=== PATIENT | female | born 1985 | race Caucasian/White ===

== ENCOUNTER 2019-05-17 10:57 | Emergency (ER) | payer OTHER ==
[~2019-05-17] VITALS: Ht 154.9 cm; Wt 99.8 kg
--- OUTSIDE RECORDS SUMMARY | 2019-05-17 11:00 | XMS REPORT | Continuity of Care Document ---
Author Author [place] Address Unknown Phone Unavailable Care Team Providers Care Rope Tier Name Role Phone VILOOP Unavailable Unavailable Problems Problem Status Onset Date Classification Date Reported Comments Source Immunization due 12/11/2018 Diagnosis 12/11/2018 [facility] Elevated blood-pressure reading without diagnosis of hypertension 12/11/2018 Diagnosis 12/11/2018 [facility] Body mass index 40+ - severely obese 12/11/2018 Diagnosis 12/11/2018 [facility] Influenza due to Influenza A virus 12/10/2018 Diagnosis 12/11/2018 [facility] Acute bronchitis 12/10/2018 Diagnosis 12/11/2018 [facility] Acute sinusitis 12/10/2018 Diagnosis 12/11/2018 [facility] Medications Medication Details Route Status Patient Instructions Ordering Provider Order Date Source Amoxicillin 875 MG / Clavulanate 125 MG Oral Tablet [Augmentin] Augmentin 875 mg-125 mg tablet Take 1 tablet every 12 hours by oral route for 7 days. Active [facility] benzonatate 200 MG Oral Capsule benzonatate 200 mg capsule Take 1 capsule 3 times a day by oral route for 5 days. take only prn cough Active [facility] Fluticasone propionate 0.05 MG/ACTUAT Metered Dose Nasal [place] fluticasone propionate 50 mcg/actuation nasal spray,suspension [place] 2 sprays every day by intranasal route for 30 days. Active [facility] 200 ACTUAT Albuterol 0.09 MG/ACTUAT Metered Dose Inhaler [ProAir] ProAir HFA 90 mcg/actuation aerosol inhaler Inh[place] 2 puffs every 4 hours by inhalation route for 14 days. take as needed for cough, wheezing and shortness of breath/chest tightness Active [facility] Allergies, Adverse Reactions, Alerts No Known Medication Allergies Immunizations No Data Provided for This Section Results Order Name Results Value Reference Range Date Interpretation Comments Source PEF 300 12/10/2018 [facility] Percent Predicted Value 63 12/10/2018 [facility] Influenza A positive 12/10/2018 [facility] Influenza B negative 12/10/2018 [facility] Pathology Reports No Data Provided for This Section Diagnostic Reports No Data Provided for This Section Consultation Notes No Data Provided for This Section Discharge Summaries No Data Provided for This Section History and Physicals No Data Provided for This Section Vital Signs Vital Sign Value Date Comments Source Diastolic (mm Hg) 76 12/10/2018 [facility] Height 61 12/10/2018 [facility] Systolic (mm Hg) 122 12/10/2018 [facility] Weight 245 12/10/2018 [facility] Encounters Location Location Details Encounter Type Encounter Number Reason For Visit Attending Provider ADM Date DC Date Status Source [place] - [facility] Lynda Burton, MARKER ASSEMBLER-C: [address] [place] [address], Ph. [id number] Lynda Burton 12/10/2018 [facility] Procedures No Data Provided for This Section Assessment and Plan No Data Provided for This Section Plan of Care No Data Provided for This Section Social History Social History Date Source Smoking Status Never Smoker 12/10/2018 [facility] Family History No Data Provided for This Section Advance Directives No Data Provided for This Section Functional Status No Data Provided for This Section
--- OUTSIDE RECORDS SUMMARY | 2019-05-17 11:01 | XMS REPORT | Encounter Summary ---
Author Organization Unknown Address [address] [place] [address] Phone [phone] Reason for Visit Medical Complaint Instructions 1. Acute bronchitis rapid flu (A+B) peak flow benzonatate 200 mg capsule ProAir HFA 90 mcg/actuation aerosol inhaler bronchitis: care instructions 2. Acute sinusitis fluticasone propionate 50 mcg/actuation nasal spray,suspension Augmentin 875 mg-125 mg tablet sinusitis: care instructions 3. Influenza due to Influenza A virus influenza (flu): care instructions 4. Body mass index 40+ - severely obese learning about healthy weight 5. Elevated blood-pressure reading without diagnosis of hypertension elevated blood pressure: care instructions 6. Immunization due Discussion Note Pt is aaox3 and in NAD; verbalizes understanding of all instructions and has no further questions at this time Plan of Care Patient Instructions Please take medications as instructed. Advise rest, fluids, good hand hygiene. ER precautions advised for high fever, shortness of breath, difficulty breathing, chest pain, or any new/worsening symptoms. Reminders Provider Appointments None recorded. Lab Rapid Flu (A+B) 12/10/2018 [facility] Referral None recorded. Procedures None recorded. Surgeries None recorded. Imaging None recorded. Medications Name Start Date Augmentin 875 mg-125 mg tablet Take 1 tablet every 12 hours by oral route for 7 days. benzonatate 200 mg capsule Take 1 capsule 3 times a day by oral route for 5 days. take only prn cough fluticasone propionate 50 mcg/actuation nasal spray,suspension [place] 2 sprays every day by intranasal route for 30 days. ProAir HFA 90 mcg/actuation aerosol inhaler Inhale 2 puffs every 4 hours by inhalation route for 14 days. take as needed for cough, wheezing and shortness of breath/chest tightness Medications Administered None recorded. Vitals Height Weight BMI Blood Pressure 5 ft 1 in 245 lbs 46.3 kg/m2 122/76 mm[Hg] Lab Results Date Name Specimen Result Interpretation Description Value Range Status Address Peak Flow Pef [facility] Percent Predicted Value 63% [facility]: [facility] Rapid Flu (A+B) Influenza a positive [facility]: [facility] Influenza B negative [facility]: [facility] Allergies Code Code System Name Reaction Severity Status Onset NKDA Problems No Known Problems Procedures None recorded. Vaccine List None recorded. Social History Smoking Status Never Smoker Past Encounters 12/10/2018 Acute Bronchitis; Acute Sinusitis; Influenza Due to Influenza a Virus; Body Mass Index 40+ - Severely Obese; Elevated Blood-pressure Reading without Diagnosis of Hypertension; Immunization Due Lynda Burton, [employer]ARK INTERPRETIVE [employer]IST-C: [address] [place] [address], Ph. History of Present Illness [id number] Reported By: Patient HPI: Location: head/sinuses, chest. Quality: productive cough, nasal/sinus congestion. Duration: 10days. Severity: moderate. Onset/Timing: gradual. Context: no sick contacts, no foreign travel, non-smoker, allergies. Modifying factors: OTC medication. Associated Symptoms: no sputum production, no wheezing, no change in number of pillows needed to sleep at night, no sweats, no significant weight gain, no significant weight loss, no morning cough, no sore throat, no vomiting, no diarrhea, no rash, no nausea, no fever, shortness of breath, fatigue, fever, muscle aches, headache Review of Systems:ROS as noted in the HPI Review of Systems Basic Reported By: Patient Physical Exam Adult Basic, Adult Female Complete Reported By: Patient Constitutional: General Appearance: healthy-appearing, morbidly obese. Level of Distress: NAD. Ambulation: ambulating normally Psychiatric: Mental Status: active and alert. Orientation: to time, to place, to person Eyes: Lids and Conjunctivae: non-injected, no discharge, no pallor Xrp-[id number]-Qqtop-Throat: Ears: no lesions on external ear, no outer ear tenderness, EACs clear, TMs clear. Hearing: no hearing loss. Nose: no lesions on external nose, no septal deviation, nasal obstruction, sinus tenderness, post nasal drip. Lips, Teeth, and Gums: no mouth or lip ulcers, no bleeding gums, normal dentition. Oropharynx: moist mucous membranes, no exudates, tonsils not enlarged, erythema Neck: Neck: supple, trachea midline, FROM. Lymph Nodes: no cervical LAD Lungs: Respiratory effort: no dyspnea, no tachypnea, no use of accessory muscles, no intercostal retractions. Auscultation: breath sounds normal Cardiovascular: Heart Auscultation: RRR, no murmurs
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
[2019-05-17 12:36] LABS: BASOPHILS % 0.4 % (0.0-1.0); EOSINOPHILS # (AUTO) 0.1 (0.0-0.4); EOSINOPHILS % 1.5 % (0.0-6.0); HEMATOCRIT 45.1 % (34.2-44.1); HEMOGLOBIN 14.8 g/dL (12.0-16.0); LYMPHOCYTES # (AUTO) 2.1 (1.0-3.2); LYMPHOCYTES % 26.3 % (18.0-39.1); MEAN CORPUSCULAR HEMOGLOBIN 28.1 pg (28-32); MEAN CORPUSCULAR HGB CONC 32.8 g/dL (31-35); MEAN CORPUSCULAR VOLUME 85.6 fL (81-99); MONOCYTES # (AUTO) 0.5 (0.2-0.8); MONOCYTES % 6.7 % (4.4-11.3); NEUTROPHILS # (AUTO) 5.2 (2.1-6.9); NEUTROPHILS % 64.9 % (38.7-80.0); PLATELET COUNT 275 x10e3/uL (140-360); RED BLOOD COUNT 5.27 x10e6/uL (3.6-5.1)
--- NOTE | 2019-05-17 12:40 | NUR ---
NOTIFIED LAB FOR BLOOD COLLECTION, DIFFICULT STICK, LABS HEMOLYZED.
--- NOTE | 2019-05-17 12:48 | NUR ---
PHELBOTOMIST AT BEDSIDE AT THIS TIME TO REDRAW BLOOD FOR LABS.
[2019-05-17 12:50] LABS: BILIRUBIN,URINE NEGATIVE (NEGATIVE); CLARITY,URINE CLEAR (CLEAR); COLOR,URINE YELLOW (YELLOW); KETONES,URINE NEGATIVE (NEGATIVE); LEUKOCYTE ESTERASE ,URINE NEGATIVE (NEGATIVE); NITRITE,URINE NEGATIVE (NEGATIVE); PROTEIN,URINE DIPSTICK NEGATIVE (NEGATIVE); URINE UROBILINOGEN 0.2 mg/dL (0.2 - 1)
[2019-05-17 13:09] LABS: BACTERIA,URINE MODERATE /HPF; EPITHELIAL CELLS,URINE MODERATE /LPF
[2019-05-17 13:24] LABS: ALANINE AMINOTRANSFERASE 8 IU/L (0-55); ALBUMIN 3.9 g/dL (3.5-5.0); ALBUMIN/GLOBULIN RATIO 1.1 (0.8-2.0); ALKALINE PHOSPHATASE 59 IU/L (40-150); ANION GAP 14.3 mmol/L (8-16); BLOOD UREA NITROGEN 13 mg/dL (7-26); BUN/CREATININE RATIO 17 (6-25); CALCIUM 9.5 mg/dL (8.4-10.2); CARBON DIOXIDE 23 mmol/L (22-29); CHLORIDE 104 mmol/L (98-107); CREATININE, SERUM 0.77 mg/dL (0.57-1.11); EST GLOMERULAR FILTRATION RATE > 60 ML/MIN (60-); GLUCOSE 98 mg/dL (74-118); POTASSIUM 4.3 mmol/L (3.5-5.1); SODIUM 137 mmol/L (136-145)
[2019-05-17] MEDS ORDERED: CEFTRIAXONE SOD 1 GM/NS 50 ML 50 ML IV ONE (14:00)
[2019-05-17 15:11] VITALS: BP 120/79
== END 2019-05-17 14:20 | disposition home or self-care (01) ==
LOC: ER 10:57
DX: R10.32 Left lower quadrant pain (principal); R19.7 Diarrhea, unspecified; N39.0 Urinary tract infection, site not specified
CPT/HCPCS: 36415; 80053; 81001; 81025; 85025; 99283; J0696